=== PATIENT | female | born 1980 | race Caucasian/White ===

== ENCOUNTER 2016-12-27 05:49 | Inpatient (IN) | payer BC ==
[~2016-12-27 05:49] MED LIST: Buffered Lidocaine 0.9% SYRIN* 5 ML/SYR SYRINGE INTRADERM ONE
[2016-12-27] MEDS ORDERED: Famotidine IV* 10 MG/ML 2 ML (20 mg) IV ONE (06:00)
[2016-12-27] MEDS ORDERED: Sodium Citrate/Citric Acid* 15 ML UDC PO ONE (06:00)
[2016-12-27] MEDS ORDERED: Ondansetron INJ* 2 MG/ML VIAL ONE (07:37)
[2016-12-27] MEDS ORDERED: Dexamethasone IV* 4 MG/ML 1 ML (4 MG) ONE (07:37)
[2016-12-27] MEDS ORDERED: OXYTOCIN* 10 UNITS/ML 1 ML VIAL ONE (07:37)
[2016-12-27] MEDS ORDERED: Morphine PF AMP (0.5MG/ML)* 5 MG/10 ML AMP ONE (07:37)
[2016-12-27] MEDS ORDERED: Clindamycin 900 MG IVPREMIX(* 900 MG/50 ML SDV IV ONE (08:00)
[2016-12-27] MEDS ORDERED: Nalbuphine* 20 MG/ML 1 ML VIAL IV PRN ×2 (08:42)
[2016-12-27] MEDS ORDERED: Ondansetron INJ* 2 MG/ML VIAL IV PRN (08:42)
[2016-12-27] MEDS ORDERED: Naloxone* 0.4 MG/ML 1 ML VIAL IV PRN (08:42)
[2016-12-27] MEDS ORDERED: Ketorolac INJ* 30 MG/ML 1 ML VIAL IV PRN (08:42)
[2016-12-27] MEDS ORDERED: fentaNYL* 50 MCG/ML 2 ML VIAL (100 MCG VIAL) IV PRN (08:46)
[2016-12-27] MEDS ORDERED: oxyCODONE/Acetamin 5/325 MG* TAB PO PRN ×2 (08:46)
[2016-12-27] MEDS ORDERED: fentaNYL* 50 MCG/ML 2 ML VIAL (100 MCG VIAL) ONE (08:56)
[2016-12-27] MEDS ORDERED: Glycerin ADULT SUPP PR PRN (09:42)
[2016-12-27] MEDS ORDERED: Witch Hazel PAD* JAR TOPICAL PRN (09:42)
[2016-12-27] MEDS ORDERED: Dibucaine 1% 28.35 GM TUBE PR PRN (09:42)
[2016-12-27] MEDS ORDERED: Acetaminophen TAB* 325 MG PO PRN (09:42)
[2016-12-27] MEDS ORDERED: Oxytocin in LR* 20 UNITS/1,000 ML BAG IVPB SCH (10:00)
[2016-12-27] MEDS: Simethicone CHEW TAB* 80 MG PO SCH ×3 (11:01→21:22)
[2016-12-27] MEDS: Ibuprofen TAB* 600 MG PO SCH ×2 (11:02→17:15)
[2016-12-27] MEDS: Docusate CAP* 100 MG PO SCH ×2 (12:32→21:22)
[2016-12-28] MEDS: Ibuprofen TAB* 600 MG PO SCH ×5 (00:04→20:13)
[2016-12-28] MEDS ORDERED: oxyCODONE/Acetamin 5/325 MG* TAB PO PRN (00:42)
[2016-12-28] MEDS: oxyCODONE/Acetamin 5/325 MG* TAB PO PRN ×5 (02:27→23:07)
[2016-12-28 07:25] LABS: Hematocrit 34 % (35-47); Mean Corpuscular HGB Conc 33 g/dl (31-36); Mean Corpuscular Hemoglobin 28 pg (27-31); Mean Corpuscular Volume 85 fL (80-97); Mean Platelet Volume 8 um3 (7.4-10.4); Red Blood Count 3.96 10^6/ul (4.0-5.4); Red Cell Distribution Width 16 % (10.5-15); White Blood Count 12.7 10^3/ul (3.5-10.8)
[2016-12-28] MEDS: Simethicone CHEW TAB* 80 MG PO SCH ×4 (08:19→20:13)
[2016-12-28] MEDS: Docusate CAP* 100 MG PO SCH ×3 (08:19→20:13)
[2016-12-28] MEDS: Prenatal Vitamin TAB PO SCH (08:19)
[2016-12-28] MEDS: Ferrous Gluconate TAB* 324 MG TAB PO SCH (09:00)
--- NOTE | 2016-12-28 14:48 | OP ---
DATE OF OPERATION: 12/27/16 - ROOM #[id number] DATE OF : 80 SURGEON: Nancy Biswas MD ASSISTANTS: 1. Phan Gaspar MD 2. Elma Shannon CNM ANESTHESIOLOGIST: Chandu Stinson MD ANESTHESIA: Spinal PRE-OP DIAGNOSIS: Intrauterine at 39-0/7 weeks, desires repeat section, desires permanent sterility. POST-OP DIAGNOSIS: Intrauterine at 39-0/7 weeks, desires repeat section, desires permanent sterility. Delivered. OPERATIVE PROCEDURE: Repeat low-transverse section and bilateral fimbriectomy. ESTIMATED BLOOD LOSS: 600 cc. URINE OUTPUT: 200 cc. FLUIDS: 1800 cc of crystalloid. FINDINGS: Revealed a vertex male . No nuchal cord. No meconium. Apgars were 9 at 1 minute and 9 at 5 minutes. Weight was 9 pounds even. Normal -appearing tubes and ovaries bilaterally. Normal uterine cavity with no evidence of retained placental tissue or membranes. Placenta was manually extracted intact and 3-vessel cord with normal appearance. COMPLICATIONS: None apparent. DISPOSITION: Stable to recovery room. DESCRIPTION OF PROCEDURE: The patient was placed in dorsal lithotomy position. The abdomen was prepped and draped in sterile standard fashion. The patient was identified with universal protocol for correct procedure, patient, and position. After testing anesthesia to appropriate level, an incision was made through prior incision. This was carried down through to the fascia. Fascia was scored in the midline and then the fascial incision was extended laterally and superiorly using Crooks scissors. The fascia was superiorly and inferiorly from the rectus muscle using blunt and sharp dissection. The peritoneum was then entered bluntly and the peritoneal incision was extended with direct visualization of bowel and bladder using Metzenbaum. Bladder blade was inserted. The lower uterine segment was identified. The bladder flap was created through blunt and sharp dissection with Metzenbaum. An incision was then made in the myometrium, and this was carried down through to membranes. Bandage scissors were used to extend the uterine incision both superiorly and laterally. Amniotomy was created for clear fluid. The was delivered ROT. No nuchal cord. No meconium noted. Anterior and posterior shoulder delivered. Cord was milked and clamped and then cut. was handed off to waiting bank runner. Appropriate cord blood was then obtained. Placenta was then manually extracted and noted to be intact with 3-vessel cord having normal appearance. The uterus was then exteriorized. The uterine cavity was explored and noted to be free of any membranes or placental tissue. The uterine incision itself was then reapproximated, first layer running locked, second layer running imbricated. At that point, the patient confirmed that she wanted permanent sterility. A Sada was then placed across the left distal tube x2 and the fimbria and distal one-third of the tube was then excised. A 0 Vicryl ligature suture was placed and then a Wallace suture of 3-0 Vicryl was placed above that for complete hemostasis. This was done on the left and then this process was repeated on the right. Ovaries were noted to have a normal appearance. The uterus was returned intra-abdominally. Colic gutters were lavaged. Hysterotomy site was noted to be hemostatic. The peritoneum was then reapproximated using 3-0 Vicryl in a running fashion. The subfascial area was lavaged. Hemostasis assured and the fascia was then reapproximated using 0 Vicryl x2 in a running fashion. A Camper's fascial stitch was then placed using 3-0 Vicryl in an interrupted fashion for complete reapproximation of Camper's fascia. The skin was then reapproximated using 4-0 Monocryl in subcuticular fashion. Steri's and Mastisol were applied. The patient tolerated well. The patient was then taken to recovery room. Please note that all sponge , needle, instrument, and blade counts were correct throughout the case. [id number]/[facility] #: [id number] UYEN
[2016-12-29] MEDS: Ibuprofen TAB* 600 MG PO SCH ×4 (02:49→21:20)
[2016-12-29] MEDS: oxyCODONE/Acetamin 5/325 MG* TAB PO PRN ×4 (04:34→20:08)
[2016-12-29] MEDS: Ferrous Gluconate TAB* 324 MG TAB PO SCH (06:10)
[2016-12-29] MEDS: Docusate CAP* 100 MG PO SCH ×3 (09:27→21:21)
[2016-12-29] MEDS: Simethicone CHEW TAB* 80 MG PO SCH ×4 (09:27→21:21)
[2016-12-29] MEDS: Prenatal Vitamin TAB PO SCH (09:27)
[2016-12-30] MEDS: oxyCODONE/Acetamin 5/325 MG* TAB PO PRN ×3 (00:10→11:42)
[2016-12-30] MEDS: Ibuprofen TAB* 600 MG PO SCH ×2 (03:49→10:10)
[2016-12-30 07:42] VITALS: BP 134/73
[2016-12-30] MEDS: Docusate CAP* 100 MG PO SCH (10:09)
[2016-12-30] MEDS: Prenatal Vitamin TAB PO SCH (10:09)
[2016-12-30] MEDS: Simethicone CHEW TAB* 80 MG PO SCH (10:10)
--- NOTE | 2016-12-30 11:10 | RAD ---
INDICATION: Right lower extremity pain status post section. COMPARISON: There are no prior studies available for comparison. TECHNIQUE: Multiple real-time, color flow and Doppler tracings of the right lower extremity were obtained. FINDINGS: The common femoral, femoral, profunda femoral and popliteal veins all demonstrate normal compressibility, augmentation with compression and phasic response with respiration. The posterior tibial veins demonstrate normal compressibility and augmentation with compression. The peroneal veins were nonvisualized. IMPRESSION: SLIGHTLY LIMITED EXAM OF THE CALF, NO EVIDENCE FOR DEEP VENOUS THROMBOSIS.
[2016-12-31] MEDS ORDERED: Ibuprofen TAB* 600 MG PO PRN
== END 2016-12-30 12:34 | disposition home or self-care (01) | DRG 540 ==
LOC: MCHOB 05:49
PROVIDERS: ADMIT Obstetrics & Gynecology; ATTEND Obstetrics & Gynecology
PROC: 0UB70ZZ Excision of Bilateral Fallopian Tubes, Open Approach (ICD-10-PCS; 2016-12-27)
PROC: 10D00Z1 Extraction of Products of Conception, Low, Open Approach (ICD-10-PCS; principal; 2016-12-27 07:45)
DX: O34.211 Maternal care for low transverse scar from previous cesarean delivery (principal); Z68.43 Body mass index [BMI] 50.0-59.9, adult; O99.214 Obesity complicating childbirth; E66.01 Morbid (severe) obesity due to excess calories; Z88.1 Allergy status to other antibiotic agents; Z88.0 Allergy status to penicillin; Z88.2 Allergy status to sulfonamides; Z88.8 Allergy status to other drugs, medicaments and biological substances; Z91.048 Other nonmedicinal substance allergy status; Z3A.38 38 weeks gestation of pregnancy; Z37.0 Single live birth
CPT/HCPCS: 36415; 85025; 88302; A9270-GY; J1100; J1580; J2405; J2590; J3010